=== PATIENT | female | born 1990 | race African-American/Black ===

== ENCOUNTER 2016-07-28 11:54 | Emergency (ER) | payer OTHER ==
[~2016-07-28] VITALS: Ht 157.5 cm; Wt 79.4 kg
[~2016-07-28 11:54] MED LIST: FLONASE16 G1 BOTH NARES; KEFLEX500 MG PO; PREDNISONE20 MG PO; SILVADENE20 GM TP; TRAMADOL HCL50 MG PO; VENTOLIN HFA18 GM IH
[2016-07-28 12:42] VITALS: BP 110/81
== END 2016-07-28 15:03 | disposition left against medical advice (07) ==
LOC: EME 11:54
DX: M79.89 Other specified soft tissue disorders (principal); Z53.21 Procedure and treatment not carried out due to patient leaving prior to being seen by health care provider
CPT/HCPCS: 99281; 99283

== ENCOUNTER 2016-11-09 11:59 | Emergency (ER) | payer OTHER ==
[~2016-11-09] VITALS: Ht 157.5 cm; Wt 83.7 kg
[2016-11-09 12:20] VITALS: BP 119/73
== END 2016-11-09 13:36 | disposition left against medical advice (07) ==
LOC: EME 11:59
DX: M79.604 Pain in right leg (principal); Z53.21 Procedure and treatment not carried out due to patient leaving prior to being seen by health care provider